=== PATIENT | female | born 1970 | race Caucasian/White ===

== ENCOUNTER 2019-04-05 09:41 | Outpatient (CLI) | payer OTHER ==
[2019-04-05 10:14] LABS: BASOPHILS % (AUTO) 0.5 %; EOSINOPHILS # (AUTO) 0.3 10^3/uL (0.0-0.7); EOSINOPHILS % (AUTO) 5.3 %; HGB - HEMOGLOBIN 14.4 g/dL (12.0-16.0); LYMPHOCYTES # (AUTO) 1.9 10^3/uL (1.5-3.5); LYMPHOCYTES % (AUTO) 33.8 %; MEAN CORPUSCULAR HEMOGLOBIN 28.5 pg (27.0-31.0); MEAN CORPUSCULAR HGB CONC 31.9 g/dL (32.0-36.0); MEAN CORPUSCULAR VOLUME 89.3 fL (81.0-99.0); MEAN PLATELET VOLUME 8.9 fL (7.9-10.8); MONOCYTES # (AUTO) 0.3 10^3/uL (0.0-1.0); MONOCYTES % (AUTO) 5.9 %; NEUTROPHILS % (AUTO) 54.3 %; PLT - PLATELET COUNT 329 10^3/uL (130-450); RED BLOOD COUNT 5.06 10^6/uL (4.20-5.40); RED CELL DISTRIBUTION WIDTH 13.3 % (12.0-15.0); WHITE BLOOD COUNT 5.5 x10^3/uL (4.8-10.8)
[2019-04-05 10:28] LABS: ALBUMIN/GLOBULIN RATIO 1.3 (1.0-2.2); ALKALINE PHOSPHATASE 58 IU/L (42-121); ALT ALANINE AMINOTRANSFERASE 18 IU/L (10-60); AST ASPARTATE AMINOTRANSFERASE 18 IU/L (10-42); BILIRUBIN,TOTAL < 0.2 mg/dL (0.2-1.0); BUN - BLOOD UREA NITROGEN 15 mg/dL (6-20); CALCIUM 9.4 mg/dL (8.5-10.3); CARBON DIOXIDE - CO2 29 mmol/L (21-32); CHLORIDE 103 mmol/L (101-111); CHOL/HDL RATIO 3.6 (<4.4); CHOLESTEROL 272 mg/dL; CREATININE 0.9 mg/dL (0.4-1.0); GFR - MDRD 66 (>89); GLUCOSE 104 mg/dL (70-100); HDL CHOLESTEROL 75 mg/dL; LDL CHOLESTEROL,CALCULATED 172 mg/dL; LDL/HDL RATIO 2.3 (<4.4); SODIUM 140 mmol/L (135-145); TOTAL PROTEIN 7.2 g/dL (6.7-8.2); URIC ACID 5.9 mg/dL (2.6-7.2); VLDL CHOLESTEROL 25 mg/dL
[2019-04-05 10:32] LABS: CRP - C-REACTIVE PROTEIN < 1.0 mg/dL (0-1.0)
== END 2019-04-05 09:42 | disposition home or self-care (01) ==
LOC: LAB 09:41
PROVIDERS: ATTEND Nurse Practitioner
DX: Z00.00 Encounter for general adult medical examination without abnormal findings (principal); R20.9 Unspecified disturbances of skin sensation; I10 Essential (primary) hypertension; M25.50 Pain in unspecified joint; Z79.899 Other long term (current) drug therapy
CPT/HCPCS: 36415; 80053; 80061; 83721; 84443; 84550; 85025; 85651; 86140

== ENCOUNTER 2019-04-12 09:18 | Outpatient (CLI) | payer OTHER ==
[2019-04-14 08:15] LABS: RHEUMATOID FACTOR NEGATIVE (Negative)
[2019-04-16 20:17] LABS: ANA SCREEN NEGATIVE (NEGATIVE)
== END 2019-04-12 09:19 | disposition home or self-care (01) ==
LOC: LAB 09:18
PROVIDERS: ATTEND Nurse Practitioner
DX: M25.50 Pain in unspecified joint (principal)
CPT/HCPCS: 36415; 81599; 82306; 86038; 86200; 86430

== ENCOUNTER 2019-07-04 06:03 | Day surgery (SDC) | payer OTHER ==
[2019-07-04] MEDS ORDERED: fentaNYL 2,500 MCG/50 ML VIAL IV ONE (06:04)
[2019-07-04] MEDS ORDERED: MIDAZOLAM 2 MG/2 ML VIAL IVP ONE (06:04)
[2019-07-04] MEDS ORDERED: LACTATED RINGERS 1,000 ML IV ONE (06:29)
[2019-07-04] MEDS ORDERED: ONDANSETRON 4 MG/2 ML VIAL ONE (07:06)
[2019-07-04] MEDS ORDERED: GLUCAGON 1 MG/ML VIAL ONE (07:20)
[2019-07-04 08:20] VITALS: BP 103/71
== END 2019-07-04 06:04 | disposition home or self-care (01) ==
LOC: SDS 06:03
PROVIDERS: ATTEND Surgery
PROC: 0DJD8ZZ Inspection of Lower Intestinal Tract, Via Natural or Artificial Opening Endoscopic (ICD-10-PCS; principal; 2019-07-04 07:30)
DX: Z12.11 Encounter for screening for malignant neoplasm of colon (principal); Z53.8 Procedure and treatment not carried out for other reasons
CPT/HCPCS: 45378; J3010; J7120

== ENCOUNTER 2019-08-06 09:29 | Day surgery (SDC) | payer OTHER ==
[2019-08-06] MEDS ORDERED: LACTATED RINGERS 1,000 ML IV ONE (09:34)
[2019-08-06] MEDS ORDERED: MIDAZOLAM 2 MG/2 ML VIAL IVP ONE (10:42)
[2019-08-06] MEDS ORDERED: fentaNYL 250 MCG/5 ML VIAL IVP ONE (10:42)
[2019-08-06 11:19] VITALS: BP 105/71
== END 2019-08-06 09:30 | disposition home or self-care (01) ==
LOC: SDS 09:29
PROVIDERS: ATTEND Surgery
PROC: 0DJD8ZZ Inspection of Lower Intestinal Tract, Via Natural or Artificial Opening Endoscopic (ICD-10-PCS; principal; 2019-08-06 11:00)
DX: Z12.11 Encounter for screening for malignant neoplasm of colon (principal); I10 Essential (primary) hypertension; Z79.899 Other long term (current) drug therapy
CPT/HCPCS: 45378; J7120

== ENCOUNTER 2020-02-13 07:32 | Outpatient (CLI) | payer OTHER ==
[2020-02-13 11:37] LABS: HGB - HEMOGLOBIN 13.6 g/dL (12.0-16.0); MEAN CORPUSCULAR HEMOGLOBIN 28.2 pg (27.0-31.0); MEAN CORPUSCULAR HGB CONC 31.3 g/dL (32.0-36.0); MEAN CORPUSCULAR VOLUME 89.9 fL (81.0-99.0); RED BLOOD COUNT 4.83 10^6/uL (4.20-5.40); RED CELL DISTRIBUTION WIDTH 13.2 % (12.0-15.0); WHITE BLOOD COUNT 5.5 x10^3/uL (4.8-10.8)
[2020-02-13 12:19] LABS: ALBUMIN 3.8 g/dL (3.2-5.5); ALBUMIN/GLOBULIN RATIO 1.3 (1.0-2.2); ALKALINE PHOSPHATASE 59 IU/L (42-121); ALT ALANINE AMINOTRANSFERASE 21 IU/L (10-60); AST ASPARTATE AMINOTRANSFERASE 22 IU/L (10-42); BILIRUBIN,TOTAL 0.8 mg/dL (0.2-1.0); BUN - BLOOD UREA NITROGEN 21 mg/dL (6-20); CARBON DIOXIDE - CO2 27 mmol/L (21-32); CHLORIDE 103 mmol/L (101-111); CHOL/HDL RATIO 3.3 (<4.4); CHOLESTEROL 256 mg/dL; GLUCOSE 106 mg/dL (70-100); HDL CHOLESTEROL 78 mg/dL; LDL CHOLESTEROL,CALCULATED 147 mg/dL; LDL/HDL RATIO 1.9 (<4.4); SODIUM 137 mmol/L (135-145); TOTAL PROTEIN 6.7 g/dL (6.7-8.2); URIC ACID 5.9 mg/dL (2.6-7.2); VLDL CHOLESTEROL 31 mg/dL
[2020-02-13 12:32] LABS: CRP - C-REACTIVE PROTEIN < 1.0 mg/dL (0-1.0)
[2020-02-13 12:48] LABS: RHEUMATOID FACTOR NEGATIVE (Negative)
--- NOTE | 2020-02-13 15:14 | XRAY Report ---
Reason: POLYARTHRALGIA Procedure Date: 02/13/2020 Accession Number: [id number] / [id number] Procedure: WCP - Hand 2 View BILAT CPT Code: Final Report FULL RESULT: PROCEDURE: Hand 2 View BILAT INDICATIONS: POLYARTHRALGIA TECHNIQUE: 2 views of the hand(s) acquired. COMPARISON: None FINDINGS: Bones: No fractures or dislocations. No suspicious bony lesions. No appreciable IP or CMC degenerative narrowing is identified. No erosions or periarticular osteophytes. Soft tissues: No suspicious soft tissue calcifications. IMPRESSION: No erosions or definitive areas of arthritic narrowing. Reviewed by: Dulce Maria Fernandez MD on 02/13/2020 3:13 PM PDT Approved by: Dulce Maria Fernandez MD on 02/13/2020 3:13 PM PDT Station ID: [id number]
[2020-02-16 12:04] LABS: ANA SCREEN NEGATIVE (NEGATIVE)
== END 2020-02-13 23:59 | disposition home or self-care (01) ==
LOC: DI.WCP 07:32
PROVIDERS: ATTEND Family Medicine
DX: M25.542 Pain in joints of left hand (principal); M25.541 Pain in joints of right hand; E78.5 Hyperlipidemia, unspecified; I10 Essential (primary) hypertension; M25.50 Pain in unspecified joint
CPT/HCPCS: 36415; 80053; 80061; 83721; 84550; 85027; 85651; 86038; 86140; 86200; 86430

== ENCOUNTER 2020-05-17 07:00 | Outpatient (CLI) | payer OTHER | END 2020-05-17 23:59 | disposition home or self-care (01) | LOC: LAB.R 07:00 | PROVIDERS: ATTEND Internal Medicine | DX: R68.83 Chills (without fever) (principal); R11.2 Nausea with vomiting, unspecified; G44.89 Other headache syndrome; Z20.828 Contact with and (suspected) exposure to other viral communicable diseases ==

== ENCOUNTER 2020-05-17 08:00 | Outpatient (CLI) | payer OTHER ==
[2020-05-17 18:09] LABS: BASOPHILS % (AUTO) 0.7 %; EOSINOPHILS # (AUTO) 0.3 10^3/uL (0.0-0.7); EOSINOPHILS % (AUTO) 4.7 %; HGB - HEMOGLOBIN 14.2 g/dL (12.0-16.0); LYMPHOCYTES % (AUTO) 33.3 %; MEAN CORPUSCULAR HEMOGLOBIN 28.7 pg (27.0-31.0); MEAN CORPUSCULAR HGB CONC 32.1 g/dL (32.0-36.0); MEAN CORPUSCULAR VOLUME 89.7 fL (81.0-99.0); MEAN PLATELET VOLUME 9.2 fL (7.9-10.8); MONOCYTES # (AUTO) 0.4 10^3/uL (0.0-1.0); MONOCYTES % (AUTO) 6.3 %; NEUTROPHILS # (AUTO) 3.3 10^3/uL (1.5-6.6); NEUTROPHILS % (AUTO) 54.7 %; PLT - PLATELET COUNT 358 10^3/uL (130-450); RED BLOOD COUNT 4.94 10^6/uL (4.20-5.40)
[2020-05-17 18:31] LABS: ALBUMIN 3.8 g/dL (3.2-5.5); ALBUMIN/GLOBULIN RATIO 1.2 (1.0-2.2); BILIRUBIN,TOTAL 0.5 mg/dL (0.2-1.0); CALCIUM 9.2 mg/dL (8.5-10.3); CREATININE 0.7 mg/dL (0.4-1.0)
[2020-05-17 18:52] LABS: BILIRUBIN,URINE NEGATIVE (NEGATIVE); GLUCOSE, URINE (UA) NEGATIVE (NEGATIVE); KETONES,URINE (UA) NEGATIVE (NEGATIVE); LEUKOCYTE ESTERASE, URINE NEGATIVE (NEGATIVE); NITRITE,URINE NEGATIVE (NEGATIVE); OCCULT BLOOD,URINE NEGATIVE (NEGATIVE); PH,URINE 5.5 PH (5.0-7.5); PROTEIN,URINE NEGATIVE (NEGATIVE); UROBILINOGEN,URINE 0.2 (NORMAL) E.U./dL (NORMAL)
[2020-05-17 19:09] LABS: BACTERIA,URINE None Seen /HPF (None Seen); CLARITY,URINE CLEAR (CLEAR); RBC,URINE None Seen /HPF (0-5); SQUAMOUS EPITHELIAL CELL,UR NONE SEEN (<= Few)
== END 2020-05-17 23:59 | disposition home or self-care (01) ==
LOC: LAB.WCP 08:00
PROVIDERS: ATTEND Internal Medicine
DX: R11.2 Nausea with vomiting, unspecified (principal); R68.83 Chills (without fever); Z20.828 Contact with and (suspected) exposure to other viral communicable diseases
CPT/HCPCS: 36415; 80053; 81001; 83690; 85025; 86769; 87086; 87275; 87276

== ENCOUNTER 2020-08-29 10:39 | Outpatient (CLI) | payer OTHER ==
[2020-08-29 11:21] LABS: HGB - HEMOGLOBIN 14.3 g/dL (12.0-16.0); MEAN CORPUSCULAR HEMOGLOBIN 28.5 pg (27.0-31.0); MEAN CORPUSCULAR HGB CONC 31.8 g/dL (32.0-36.0); MEAN CORPUSCULAR VOLUME 89.8 fL (81.0-99.0); MEAN PLATELET VOLUME 8.6 fL (7.9-10.8); RED BLOOD COUNT 5.01 10^6/uL (4.20-5.40); RED CELL DISTRIBUTION WIDTH 13.1 % (12.0-15.0); WHITE BLOOD COUNT 6.3 x10^3/uL (4.8-10.8)
[2020-08-29 11:52] LABS: RHEUMATOID FACTOR NEGATIVE (Negative)
[2020-08-29 11:56] LABS: % IRON SATURATION 19 % (20-50); CHOL/HDL RATIO 4.1 (<4.4); CHOLESTEROL 294 mg/dL; CRP - C-REACTIVE PROTEIN 1.3 mg/dL (0-1.0); HDL CHOLESTEROL 72 mg/dL; IRON 95 ug/dL (28-170); LDL CHOLESTEROL,CALCULATED 177 mg/dL; LDL/HDL RATIO 2.5 (<4.4); TOTAL IRON BINDING CAPACITY 491 ug/dL (250-450); TRANSFERRIN 351 mg/dL (192-382); VLDL CHOLESTEROL 45 mg/dL
[2020-09-01 11:13] LABS: ANA SCREEN NEGATIVE (NEGATIVE)
[2020-09-01 20:57] LABS: CYCLIC CITRULL PEPTIDE CCP IGG <16 UNITS
== END 2020-08-29 10:40 | disposition home or self-care (01) ==
LOC: LAB 10:39
PROVIDERS: ATTEND Internal Medicine
DX: I10 Essential (primary) hypertension (principal); M25.50 Pain in unspecified joint
CPT/HCPCS: 36415; 80061; 82728; 83540; 83721; 84466; 85027; 85651; 86038; 86140; 86200; 86430; 86812

== ENCOUNTER 2020-09-03 15:08 | Outpatient (CLI) | payer OTHER ==
--- NOTE | 2020-09-03 16:47 | XRAY Report ---
PROCEDURE: Hand 2 View BILAT INDICATIONS: POLYTHRALGIA TECHNIQUE: 2 views of the hand(s) acquired. COMPARISON: X-ray hand 02/13/2020 FINDINGS: Bones: No fractures or dislocations. No suspicious bony lesions. No erosions. No definitive arthri tic narrowing. No appreciable interval change. Soft tissues: No suspicious soft tissue calcifications. IMPRESSION: Stable interval exam demonstrating no appreciable arthritis. Reviewed by: Dulce Maria Fernandez MD on 09/03/2020 4:45 PM PST Approved by: Dulce Maria Fernandez MD on 09/03/2020 4:45 PM [facility] Station ID: [id number]
--- NOTE | 2020-09-03 16:47 | XRAY Report ---
PROCEDURE: Foot 2 View BILAT INDICATIONS: POLYTHRALGIA TECHNIQUE: 3 views of the foot were acquired. COMPARISON: None FINDINGS: Bones: No fractures or dislocations. No suspicious bony lesions. No erosions. Questionable minimal scattered IP narrowing particularly at the DIP joints. Soft tissues: No tibiotalar joint effusion. Achilles tendon appears normal. IMPRESSION: Questionable minimal early arthritic change at the DIP joints. No erosions. Reviewed by: Dulce Maria Fernandez MD on 09/03/2020 4:46 PM [facility] Approved by: Dulce Maria Fernandez MD on 09/03/2020 4:46 PM [facility] Station ID: [id number]
== END 2020-09-03 15:09 | disposition home or self-care (01) ==
LOC: DI 15:08
PROVIDERS: ATTEND Internal Medicine
DX: M25.542 Pain in joints of left hand (principal); M25.541 Pain in joints of right hand; M25.572 Pain in left ankle and joints of left foot; M25.571 Pain in right ankle and joints of right foot; G89.29 Other chronic pain

== ENCOUNTER 2020-09-06 10:15 | Outpatient (CLI) | payer OTHER ==
--- NOTE | 2020-09-06 11:29 | XRAY Report ---
PROCEDURE: Sacrum/Coccyx INDICATIONS: POLYARTHRALGIA TECHNIQUE: 3 views of the sacrum and coccyx acquired. COMPARISON: None. FINDINGS: Bones: No fractures or dislocations. No suspicious bony lesions. Lumbar spondylosis and facet arth ropathy. Sacroiliac joints appear grossly preserved, with no definite erosions or joint space narrowi ng. Soft tissues: Visualized bowel gas pattern is normal. No suspicious soft tissue densities. IMPRESSION: Mild lumbar spondylosis and facet arthropathy. Reviewed by: Daryl Olivera MD on 09/06/2020 11:28 AM PST Approved by: Daryl Olivera MD on 09/06/2020 11:28 AM PST Station ID: [id number]
== END 2020-09-06 10:16 | disposition home or self-care (01) ==
LOC: DI 10:15
PROVIDERS: ATTEND Internal Medicine
DX: M54.5 Low back pain (principal); G89.29 Other chronic pain; M47.816 Spondylosis without myelopathy or radiculopathy, lumbar region

== ENCOUNTER 2020-09-22 18:07 | Emergency (ER) | payer OTHER ==
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
[2020-09-22 18:54] LABS: BASOPHILS # (AUTO) 0.1 10^3/uL (0.0-0.1); BASOPHILS % (AUTO) 0.8 %; EOSINOPHILS # (AUTO) 0.3 10^3/uL (0.0-0.7); EOSINOPHILS % (AUTO) 4.4 %; HCT - HEMATOCRIT 39.1 % (37.0-47.0); HGB - HEMOGLOBIN 12.6 g/dL (12.0-16.0); LYMPHOCYTES # (AUTO) 2.6 10^3/uL (1.5-3.5); LYMPHOCYTES % (AUTO) 40.4 %; MEAN CORPUSCULAR HEMOGLOBIN 28.5 pg (27.0-31.0); MEAN CORPUSCULAR HGB CONC 32.2 g/dL (32.0-36.0); MEAN CORPUSCULAR VOLUME 88.5 fL (81.0-99.0); MEAN PLATELET VOLUME 8.3 fL (7.9-10.8); MONOCYTES # (AUTO) 0.5 10^3/uL (0.0-1.0); MONOCYTES % (AUTO) 7.4 %; NEUTROPHILS % (AUTO) 46.8 %; PLT - PLATELET COUNT 365 10^3/uL (130-450); RED BLOOD COUNT 4.42 10^6/uL (4.20-5.40); RED CELL DISTRIBUTION WIDTH 12.7 % (12.0-15.0); WHITE BLOOD COUNT 6.4 x10^3/uL (4.8-10.8)
[2020-09-22] MEDS ORDERED: IOVERSOL 320 100 ML VIAL IVP ONE ×2 (19:00→19:59)
[2020-09-22 19:08] LABS: ALBUMIN 3.7 g/dL (3.2-5.5); ALBUMIN/GLOBULIN RATIO 1.1 (1.0-2.2); BILIRUBIN,TOTAL 0.7 mg/dL (0.2-1.0); CALCIUM 9.3 mg/dL (8.5-10.3); CREATININE 0.8 mg/dL (0.4-1.0); POTASSIUM 3.2 mmol/L (3.5-5.0); TOTAL PROTEIN 7.1 g/dL (6.7-8.2)
[2020-09-22] MEDS ORDERED: POTASSIUM CHLORIDE 20 MEQ TABLET PO STA (19:22)
[2020-09-22] MEDS ORDERED: SODIUM CHLORIDE 0.9% 1,000 ML IV STA (19:22)
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
[2020-09-22 20:30] VITALS: BP 134/83
== END 2020-09-22 21:02 | disposition home or self-care (01) ==
LOC: ED 18:07
DX: S20.211A Contusion of right front wall of thorax, initial encounter (principal); R07.1 Chest pain on breathing; V47.0XXA Car driver injured in collision with fixed or stationary object in nontraffic accident, initial encounter; W22.11XA Striking against or struck by driver side automobile airbag, initial encounter; Y92.410 Unspecified street and highway as the place of occurrence of the external cause; E87.6 Hypokalemia; I10 Essential (primary) hypertension
CPT/HCPCS: 36415; 71275; 80053; 83690; 84484; 85025; 93005; 99283; 99284; A9270; Q9967

== ENCOUNTER 2020-10-08 09:06 | Outpatient (CLI) | payer OTHER ==
[2020-10-08 09:47] VITALS: BP 125/84
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
== END 2020-10-08 09:07 | disposition home or self-care (01) ==
LOC: SC 09:06
PROVIDERS: ATTEND Nurse Practitioner Family
DX: G47.10 Hypersomnia, unspecified (principal); R06.83 Snoring; E66.9 Obesity, unspecified; Z68.31 Body mass index [BMI] 31.0-31.9, adult; R41.89 Other symptoms and signs involving cognitive functions and awareness
CPT/HCPCS: 99203; 99212

== ENCOUNTER 2020-11-12 10:50 | Outpatient (CLI) | payer OTHER | END 2020-11-12 10:51 | disposition home or self-care (01) | LOC: SC 10:50 | PROVIDERS: ATTEND Nurse Practitioner Family | DX: G47.10 Hypersomnia, unspecified (principal); R41.89 Other symptoms and signs involving cognitive functions and awareness; R06.83 Snoring; G47.8 Other sleep disorders; E66.9 Obesity, unspecified; Z68.31 Body mass index [BMI] 31.0-31.9, adult | CPT/HCPCS: 95806 ==

== ENCOUNTER 2020-11-23 10:26 | Outpatient (CLI) | payer OTHER ==
--- NOTE | 2020-11-23 10:44 | SLEEP CARE CONSULTATION ---
Information from patient questionnaire entered by Robyn Hargrove. I have reviewed and concur with the information entered by Robyn Hargrove. This document represents the service I personally performed and the decisions made by , Sunita Noble ARNP. History of Present Illness Service Date and Time: 11/23/2020 1026 Initial [place] Sleepiness Scale score: 18 (in 2020) Current [place] Sleepiness Scale score: 17 Additional HPI information: SALVADOR SHABAZZ returns for follow up and results of the recently performed home sleep study. The patient was informed of the following findings: Poor quality study due to near complete loss of air flow signal, testing showing no significant sleep disordered breathing with an average AHI of 0.4 and matthew of 90%. Due to poor quality study need to repeat HST or have patient do an in lab PSG for more accurate results. Patient does not drink alcohol. Patient was cautioned about risks of drowsy driving until sleepiness symptoms resolve. Patient denies drowsy driving. Sleep Study - Results Type of Sleep Study: Home sleep study Prior sleep studies: No Polysomnography/Home Sleep Study results: Physician Impression: The quality of the study is poor due to near complete loss of airflow signal. The length of the study is adequate (> 240 minutes). Please also see the tabulated and graphic data. 1. Obstructive Sleep Apnea-Hypopnea (ICD-10 G47.33), none, with an AHI of 0.4/hr and matthew SaO2 of 90%. During the study, the patient had 0 apneas (0 obstructive, 0 central, 0 mixed) and 1 hypopnea. The episode lasted 53.0 seconds. The patient did not sleep supine during this study. Recommendation: h Due to the data loss, this home sleep apnea test (HSAT) cannot be interpreted. Consider repeating the test. An in-laboratory polysomnography should be ordered if the HSAT cannot be performed properly. Allergies and Home Medications Home medication list reviewed: Yes (Meloxicam, Gabapentin) Review of Systems Review of systems same as previous: No (Possible osteoarthritis adn peripheral neuropathy) Physical Exam Heart Rate: 100 O2 Saturation: 95 Height: 5 ft 4 in Weight: 186 lb Body Mass Index: 31.9 BMI Classification: Obese Impression and Plan 1. Suspected Obstructive Sleep Apnea-Hypopnea Syndrome, as suggested by a histo ry of loud and irregular snoring, unrefreshed sleep, cognitive impairment, and excessive daytime sleepiness. We did not get a good HST result with loss of airflow signal and need to repeat her study. I recommend proceeding to polysomnography to confirm the diagnosis and to assess severity. I obtained agreement to proceed and she would like to try an in lab PSG. The pathophysiology of obstructive sleep apnea-hypopnea syndrome was discussed with the patient and health risks of cardiovascular and cerebrovascular disease if not treated. Risks of drowsy driving discussed in detail and patient advised to avoid long distance driving and to stock puller at the first sign of drowsiness. Patient agreed to plan. * Schedule polysomnography * Avoid long distance driving or driving when feeling sleepy. * Avoid alcohol, sedative and muscle relaxant around bedtime. * Attempt to lose weight. * Review instructions provided by trained office staff on how to prepare for the sleep study. * Return for follow-up after sleep study completed. Counseling Topics: Weight loss health impact Visit Type: In Office Time Spent with Patient (minutes): 12 Provider Statement: I spent 100% of the Face to Face Visit with the patient with greater than 50% spent counseling the patient and coordination of care.
== END 2020-11-23 10:27 | disposition home or self-care (01) ==
LOC: SC 10:26
PROVIDERS: ATTEND Nurse Practitioner Family
DX: G47.10 Hypersomnia, unspecified (principal); R06.83 Snoring; G47.8 Other sleep disorders; E66.9 Obesity, unspecified; Z68.31 Body mass index [BMI] 31.0-31.9, adult
CPT/HCPCS: 99212

== ENCOUNTER 2021-01-03 16:46 | Emergency (ER) | payer OTHER ==
--- NOTE | 2021-01-03 17:19 | ED Physician Documentation ---
History of Present Illness - Stated complaint Stated Complaint: CHEST PX - Chief complaint Chief Complaint: Cardiac - Additonal information Additional information: 50-year-old female presents the emergency department for evaluation of left-si ded chest pain that has been intermittent for the last 3 days. No exacerbating or relieving factors. Describes somewhat as sharp but now radiating to her left axilla. No associated shortness of air nausea vomiting abdominal pain. She is not a smoker but does carry history of hypertension. Both her mother and brother are of coronary artery disease. She does take estrogen supplementation. Denies any unilateral leg swelling calf pain tenderness no recent immobilization no personal history of blood clots or cancer. Review of Systems Constitutional: denies: Fever, Chills Eyes: reports: Reviewed and negative Ears: reports: Reviewed and negative Nose: reports: Reviewed and negative Throat: reports: Reviewed and negative Cardiac: reports: Chest pain / pressure. 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 : None HEENT: None Psych: None Musculoskeletal: Osteoarthritis, Other Derm: None - Past Surgical History General: Cholecystectomy, Appendectomy /CANAL EQUIPMENT MECHANIC: Hysterectomy HEENT: Tonsil/Adenoidectomy - Present Medications Home Medications: Ambulatory Orders Medication Instructions Recorded Confirmed DULoxetine [Cymbalta] 40 mg PO DAILY 07/03/19 01/03/21 estradioL [Estradiol] 2 mg PO DAILY 07/03/19 01/03/21 hydroCHLOROthiazide 25 mg PO DAILY 07/03/19 01/03/21 [Hydrochlorothiazide] polyethylene glycoL 3350 [Miralax] 17 gm PO DAILY 07/03/19 01/03/21 Psyllium Husk/Aspartame [Metamucil 1 tsp PO DAILY 07/04/19 01/03/21 Sugar-Free Powder] Cholecalciferol [Vitamin D3] 1,000 unit PO DAILY 01/03/21 01/03/21 Meloxicam [Mobic] 1 tablet PO DAILY 01/03/21 01/03/21 Multivitamin [Theragran] 1 each PO DAILY 01/03/21 01/03/21 - Allergies Allergies/Adverse Reactions: Allergies Allergy/AdvReac Type Severity Reaction Status Date / Time adhesive tape AdvReac Rash Verified 01/03/21 16:55 - Social History Does the pt smoke?: No Smoking Status: Never smoker Does the pt drink ETOH?: Yes Does the pt have substance abuse?: No - Immunizations Immunizations are current?: Yes - POLST Patient has POLST: No PD ED PE EXPANDED - General General: Alert, No acute distress - Cardiac Cardiac: Regular Rate, Radial strong equal, Pedal strong equal, Cap refill < 2 sec. No: Murmur Present - Respiratory Respiratory: Clear to ausultation keith. No: Distress, Labored - Abdomen Abdomen: Normal Bowel sounds. No: Tender to palpation - Back Back: Normal exam - Derm Derm: Normal color, Warm and dry. No: Rash Results - Vitals Vitals: Vital Signs - 24 hr 01/03/21 01/03/21 16:49 17:09 Temperature 36.2 C L Heart Rate 76 77 Respiratory 16 14 Rate Blood Pressure 139/96 H 137/84 H O2 Saturation 98 99 Oxygen O2 Source Room air - EKG (time done) 1651 Rate: Rate (enter#) (74) Rhythm: NSR [place]: Normal Intervals: Normal [place] QRS: Normal Ischemia: Normal ST segments Compare to prior EKG: Unchanged from prior EKG Computer interpretation: Agree with computer - Labs Labs: Laboratory Tests 01/03/21 01/03/21 01/03/21 17:05 17:05 17:05 WBC 7.9 RBC 4.85 Hgb 13.8 Hct 42.9 MCV 88.5 MCH 28.5 MCHC 32.2 RDW 13.0 Plt Count 351 MPV 8.9 Neut # (Auto) 4.1 Lymph # (Auto) 2.9 [place] # (Auto) 0.6 Eos # (Auto) 0.3 Baso # (Auto) 0.1 Absolute Nucleated RBC 0.00 Nucleated RBC % 0.0 D-Dimer Sodium 138 Potassium 3.4 L Chloride 100 L Carbon Dioxide 28 Anion Gap 10.0 BUN 27 H Creatinine 1.0 Estimated GFR (MDRD) 58 L Glucose 92 Calcium 9.9 Total Bilirubin 0.6 AST 22 ALT 24 Alkaline Phosphatase 67 Troponin I High Sens 2.5 Total Protein 7.5 Albumin 4.2 Globulin 3.3 Albumin/Globulin Ratio 1.3 Lipase 25 01/03/21 17:29 WBC RBC Hgb Hct MCV MCH MCHC RDW Plt Count MPV Neut # (Auto) Lymph # (Auto) [place] # (Auto) Eos # (Auto) Baso # (Auto) Absolute Nucleated RBC Nucleated RBC % D-Dimer < 200.0 L Sodium Potassium Chloride Carbon Dioxide Anion Gap BUN Creatinine Estimated GFR (MDRD) Glucose Calcium Total Bilirubin AST ALT Alkaline Phosphatase Troponin I High Sens Total Protein Albumin Globulin Albumin/Globulin Ratio Lipase - Rads (name of study) CXR Radiology: Final report received (No acute cardiopulmonary process) PD MEDICAL DECISION MAKING - ED course Complexity details: reviewed results, re-evaluated patient, d/w patient ED course: 50-year-old female presents emergency department today for evaluation of intermittent chest pain that has waxed and waned for about the last 3 to 4 days. Not exertional in nature and unable to be reproduced. She does carry history of hypertension but is not a smoker. However there is a strong family history of coronary artery disease. She is also on estrogen. Screening EKG is entirely nonischemic. High-sensitivity troponin is negative. Her D-dimer is not elevated. Otherwise by Wells criteria low risk for PE. Chest x-ray without any acute focal abnormalities. I did discuss this ED visit at length with the patient. Her heart score is 1 putting her low risk for 30-day Mace. I have advised close follow-up with her primary care provider. She may benefit from an outpatient stress test and echocardiogram. Emergent return precautions were discussed for concerns of worsening chest pain, shortness of air or syncope. Departure - Departure Disposition: 01 Home, Self Care Clinical Impression: Chest pain Qualifiers: Chest pain type: unspecified Qualified Code(s): R07.9 - Chest pain, unspecified Condition: Stable Record reviewed to determine appropriate education?: Yes Instructions: ED Chest Pain Atypical Unkn Cause Follow-Up: Ezequiel Vasquez MD [Primary Care Provider] - Comments: Radha were seen in the ER today for chest pain. As we discussed your chest x- ray, EKG and screening labs are all without worrisome findings. Is important you continue to take your blood pressure medications as already prescribed. I do recommend that you schedule close follow-up with your primary care provider. Given your age, history of hypertension as well as family history of coronary artery disease you may benefit from outpatient stress test and echocardiogram of your heart. If at any point you have worsening chest pain, shortness of air or any fainting episodes please return to the ER for a second evaluation.
[2021-01-03 17:28] LABS: BASOPHILS # (AUTO) 0.1 10^3/uL (0.0-0.1); BASOPHILS % (AUTO) 0.6 %; EOSINOPHILS # (AUTO) 0.3 10^3/uL (0.0-0.7); EOSINOPHILS % (AUTO) 3.9 %; HCT - HEMATOCRIT 42.9 % (37.0-47.0); HGB - HEMOGLOBIN 13.8 g/dL (12.0-16.0); LYMPHOCYTES # (AUTO) 2.9 10^3/uL (1.5-3.5); LYMPHOCYTES % (AUTO) 36.5 %; MEAN CORPUSCULAR HEMOGLOBIN 28.5 pg (27.0-31.0); MEAN CORPUSCULAR HGB CONC 32.2 g/dL (32.0-36.0); MEAN CORPUSCULAR VOLUME 88.5 fL (81.0-99.0); MEAN PLATELET VOLUME 8.9 fL (7.9-10.8); MONOCYTES # (AUTO) 0.6 10^3/uL (0.0-1.0); MONOCYTES % (AUTO) 7.2 %; NEUTROPHILS # (AUTO) 4.1 10^3/uL (1.5-6.6); NEUTROPHILS % (AUTO) 51.7 %; PLT - PLATELET COUNT 351 10^3/uL (130-450); RED BLOOD COUNT 4.85 10^6/uL (4.20-5.40); WHITE BLOOD COUNT 7.9 x10^3/uL (4.8-10.8)
[2021-01-03 17:48] LABS: ALBUMIN 4.2 g/dL (3.2-5.5); ALBUMIN/GLOBULIN RATIO 1.3 (1.0-2.2); BILIRUBIN,TOTAL 0.6 mg/dL (0.2-1.0); CALCIUM 9.9 mg/dL (8.5-10.3); POTASSIUM 3.4 mmol/L (3.5-5.0); TOTAL PROTEIN 7.5 g/dL (6.7-8.2)
[2021-01-03 18:03] VITALS: BP 141/89
--- NOTE | 2021-01-03 18:19 | XRAY Report ---
PROCEDURE: Chest 1 View X-Ray INDICATIONS: Chest Pain TECHNIQUE: One view of the chest was acquired. COMPARISON: CT angiogram chest 09/22/2020. FINDINGS: Surgical changes and devices: None. Lungs and pleura: No pleural effusions or pneumothorax. Lungs are clear. Mediastinum: Mediastinal contours appear normal. Heart size is normal. Bones and chest wall: No suspicious bony lesions. Overlying soft tissues appear unremarkable. IMPRESSION: 1. No acute cardiopulmonary disease. Reviewed by: John Marte MD on 01/03/2021 6:18 PM PDT Approved by: John Marte MD on 01/03/2021 6:18 PM PDT Station ID: [id number]
== END 2021-01-03 18:17 | disposition home or self-care (01) ==
LOC: ED 16:46
DX: R07.9 Chest pain, unspecified (principal); M79.622 Pain in left upper arm; I10 Essential (primary) hypertension; Z82.49 Family history of ischemic heart disease and other diseases of the circulatory system; Z79.890 Hormone replacement therapy
CPT/HCPCS: 36415; 80053; 83690; 84484; 85025; 85379; 93005; 99284

== ENCOUNTER 2021-05-03 11:08 | Outpatient (CLI) | payer BC ==
--- NOTE | 2021-05-04 10:11 | Mammography Report ---
BILATERAL DIGITAL SCREENING MAMMOGRAM 3D/2D: 05/03/2021 CLINICAL: Routine screening. Baseline exam. No prior exams were available for comparison. There are scattered fibroglandular elements in both br easts. No significant masses, calcifications, or other findings are seen in either breast. IMPRESSION: NEGATIVE There is no mammographic evidence of malignancy. A 1 year screening mammogram is recommended. This exam was interpreted at Station ID: [id number]. NOTE: For mammograms, a report in lay terms will be sent to the patient. Approximately 15% of breast malignancies will not be visualized mammographically. In the management of a palpable breast mass, a negative mammogram must not discourage biopsy of a clinically suspicious lesion. Electronically Signed By: Seferino Stein acr/penrad:05/03/2021 12:13:07 ACR BI-RADS Category 1: Negative 3341F PARENCHYMAL PATTERN: (A) - The breast(s) demonstrate(s) scattered fibroglandular densities. BI-RADS CATEGORY: (1) - 1 RECOMMENDATION: (ANNUAL) - Recommend routine annual screening mammography. 20220504 1 year screening LATERALITY: (B)
== END 2021-05-03 11:09 | disposition home or self-care (01) ==
LOC: DI 11:08
DX: Z12.31 Encounter for screening mammogram for malignant neoplasm of breast (principal)

== ENCOUNTER 2021-07-25 08:00 | Outpatient (CLI) | payer BC ==
--- NOTE | 2021-07-26 10:55 | XRAY Report ---
PROCEDURE: Chest 2 View INDICATIONS: COUGH TECHNIQUE: January 03, 2021 COMPARISON: None. FINDINGS: SUPPORT DEVICES: None. LUNGS/PLEURA: No focal consolidation, pleural effusion or space-occupying pneumothorax. MEDIASTINUM: The cardiomediastinal silhouette is within normal limits. BONES/SOFT TISSUES: No acute abnormality. IMPRESSION: 1.No acute cardiopulmonary abnormality. Reviewed by: Elia Chavez MD on 07/25/2021 12:32 PM [facility] Approved by: Elia Chavez MD on 07/25/2021 12:32 PM [facility] Station ID: [id number]
== END 2021-07-25 23:59 | disposition home or self-care (01) ==
LOC: DI.S 08:00
PROVIDERS: ATTEND Physician Assistant Medical
DX: R05.9 Cough, unspecified (principal); Z20.822 Contact with and (suspected) exposure to COVID-19

== ENCOUNTER 2022-04-26 15:13 | Outpatient (CLI) | payer BC ==
[2022-04-26 16:20] VITALS: BP 128/82
--- NOTE | 2022-04-26 16:20 | SLEEP CARE CONSULTATION ---
Information from patient questionnaire entered by Merly Davey MA. I have reviewed and concur with the information entered by Merly Davey MA. This document represents the service I personally performed and the decisions made by , Sunita Noble ARNP. History of Present Illness Service Date and Time: 04/26/2022 1513 Prior sleep studies: No Type of Sleep Study: Home sleep study HPI additional information: I had the pleasure of seeing SALVADOR SHABAZZ today regarding the possibility of her having a sleep disorder. Her current complaints are snoring, excessive daytime sleepiness, fatigue, frequent night awakenings and unrefreshed sleep. She had a HST that was not diagnostic and we ordered another study but for various reasons was not able to have it done. She is back to pursue a sleep study. The patient tells me that she normally goes to bed around 10 pm, and it takes her approximately 2-3 minutes to fall asleep. She has been told that she snores loudly and irregularly at night. She has not been observed to stop breathing in her sleep. Her bed partner can still sleep in the same bed. She can recall waking up on the average of 2-3 times during the night and she is able to go right back to sleep. Most of the time she wakes up because of pain, bathroom and unknown reasons. She has occasionally awakened for her own snoring. There is not a lot of tossing and turning in her sleep. Generally there is no recollection of dreams. She usually wakes up at 0545 and does not feel refreshed. She usually does have a morning headache that last all day if very tired and other times improve with Tylenol. 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 She tries to remember her mouthguard at night. During the day she complains of feeling sleepy and fatigued. She has never fallen asleep while driving nor has any accident due to sleepiness. She usually naps about 2-3 days a week for about 2-3 hours during the day. If she naps, upon falling asleep during the day she admits to having vivid dreams but she does not remember them. She denies having impaired concentration during the day. There is somniloquy (sleep talking) but no somnambulism (sleep walking). She has never experienced sleep paralysis or cataplexy. She sometimes has restless legs at night. Sleep Study - Results Type of Sleep Study: Home sleep study Prior sleep studies: No Subjective Initial [place] Sleepiness Scale score: 18 (in 2020) Current [place] Sleepiness Scale score: 13 Allergies and Home Medications Drug allergies reviewed: Yes (NKDA) Home medication list reviewed: Yes Allergy and home medication list: Allergies adhesive tape Adverse Reaction (Verified 01/03/21 16:55) Rash New Medications: Losartan Tylenol Arthritis stopped: Meloxicam, HCTZ Review of Systems Review of systems same as previous: No (Stage 3a Kidney disease) Physical Exam Vital signs obtained and entered by: RAMOS ANDREW Blood Pressure: 128/82 Cuff size: long Heart Rate: 92 O2 Saturation: 96 Height: 5 ft 2.5 in Weight: 194 lb 4 oz Body Mass Index: 34.9 BMI Classification: Obese Impression and Plan 1. Suspected Obstructive Sleep Apnea-Hypopnea Syndrome, as suggested by a history of loud and irregular snoring, morning headache, unrefreshed sleep, and excessive daytime sleepiness. I recommend proceeding to polysomnography to confirm the diagnosis and to assess severity. If the patient has significant sleep disordered breathing, a manual CPAP titration study will also be performed to find the optimal treatment pressure. I informed the patient of what the sleep studies involve and after some discussion, obtained agreement to proceed. The pathophysiology of obstructive sleep apnea-hypopnea syndrome was discussed with the patient and health risks of cardiovascular and cerebrovascular disease if not treated. Risks of drowsy driving discussed in detail and patient advised to avoid long distance driving and to slab puller at the first sign of drowsiness. Patient agreed to plan. * Schedule polysomnography * Avoid long distance driving or driving when feeling sleepy. * Avoid alcohol, sedative and muscle relaxant around bedtime. * Attempt to lose weight. * Review instructions provided by trained office staff on how to prepare for the sleep study. * Return for follow-up after sleep study completed. Counseling Topics: Weight loss health impact Visit Type: In Office Time Spent with Patient (minutes): 20 Provider Statement: I spent 100% of the Face to Face Visit with the patient with greater than 50% spent counseling the patient and coordination of care.
== END 2022-04-26 15:14 | disposition home or self-care (01) ==
LOC: SC 15:13
PROVIDERS: ATTEND Nurse Practitioner Family
DX: G47.10 Hypersomnia, unspecified (principal); R53.83 Other fatigue; R06.83 Snoring; G47.8 Other sleep disorders; I10 Essential (primary) hypertension; E66.9 Obesity, unspecified; Z68.34 Body mass index [BMI] 34.0-34.9, adult
CPT/HCPCS: 99212; 99213

== ENCOUNTER 2022-04-27 06:27 | Outpatient (CLI) | payer BC ==
[2022-04-27 06:53] LABS: CALCIUM 9.4 mg/dL (8.5-10.3); CREATININE 0.9 mg/dL (0.4-1.0); POTASSIUM 4.1 mmol/L (3.5-5.0)
[2022-04-27 06:59] LABS: CREATININE,URINE 214.2 mg/dL; MICROALBUM/CREATININE RATIO,UR 3.7 ug/mg (<30.0); MICROALBUMIN,URINE 0.8 mg/dL (0-300.0)
== END 2022-04-27 06:28 | disposition home or self-care (01) ==
LOC: LAB 06:27
PROVIDERS: ATTEND Physician Assistant
DX: N18.31 Chronic kidney disease, stage 3a (principal)
CPT/HCPCS: 36415; 80048; 82043; 82570

== ENCOUNTER 2022-05-25 02:50 | Emergency (ER) | payer BC ==
[2022-05-25 03:36] LABS: BASOPHILS # (AUTO) 0.1 10^3/uL (0.0-0.1); BASOPHILS % (AUTO) 0.8 %; EOSINOPHILS # (AUTO) 0.4 10^3/uL (0.0-0.7); EOSINOPHILS % (AUTO) 7.1 %; HCT - HEMATOCRIT 44.3 % (37.0-47.0); HGB - HEMOGLOBIN 13.8 g/dL (12.0-16.0); LYMPHOCYTES % (AUTO) 50.3 %; MEAN CORPUSCULAR HEMOGLOBIN 27.7 pg (27.0-31.0); MEAN CORPUSCULAR HGB CONC 31.2 g/dL (32.0-36.0); MEAN PLATELET VOLUME 8.3 fL (7.9-10.8); MONOCYTES # (AUTO) 0.5 10^3/uL (0.0-1.0); MONOCYTES % (AUTO) 8.1 %; NEUTROPHILS % (AUTO) 33.5 %; PLT - PLATELET COUNT 353 10^3/uL (130-450); RED BLOOD COUNT 4.98 10^6/uL (4.20-5.40); WHITE BLOOD COUNT 5.9 x10^3/uL (4.8-10.8)
--- NOTE | 2022-05-25 03:37 | ED Physician Documentation ---
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 aching, constant, sudden onset. patient has had high blood pressure readings on and off the past couple weeks and multiple changes to her BP meds. endorses intermittent headaches and nausea yesterday. denies lightheadedness, fever, confusion, chest pain, soa. 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 HEENT: Tonsil/Adenoidectomy - Present Medications Home Medications: Ambulatory Orders Medication Instructions Recorded Confirmed DULoxetine [Cymbalta] 60 mg PO DAILY 07/03/19 05/25/22 estradioL [Estradiol] 4 mg PO DAILY 07/03/19 05/25/22 Cholecalciferol [Vitamin D3] 1,000 unit PO DAILY 01/03/21 05/25/22 Multivitamin [Theragran] 1 each PO DAILY 01/03/21 05/25/22 Losartan/Hydrochlorothiazide 1 each PO DAILY 05/25/22 05/25/22 [Hyzaar 50-12.5 Tablet] - Allergies Allergies/Adverse Reactions: Allergies Allergy/AdvReac Type Severity Reaction Status Date / Time adhesive tape AdvReac Rash Verified 05/25/22 03:06 - Social History Does the pt smoke?: No Smoking Status: Never smoker Does the pt drink ETOH?: Yes Does the pt have substance abuse?: No - Immunizations Immunizations are current?: Yes - POLST Patient has POLST: No PD ED PE NORMAL - Vitals Vital signs reviewed: Yes - General General: Alert 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, No acute distress, Well developed/nourished - HEENT HEENT: Atraumatic, PERRL, EOMI, Moist mucous membranes - Neck Neck: Supple, no meningeal sign - Cardiac Cardiac: RRR - Respiratory Respiratory: No respiratory distress, Clear bilaterally - Abdomen Abdomen: Non tender, Non distended - Female Female : Deferred - Rectal Rectal: Deferred - Derm Derm: Normal color, Warm and dry - Extremities Extremities: No deformity - Neuro Neuro: Alert 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, No motor deficit, No sensory deficit - Psych Psych: Normal mood, Normal affect Results - Vitals Vitals: Vital Signs - 24 hr 05/25/22 05/25/22 05/25/22 03:03 03:10 04:12 Temperature 36.6 C Heart Rate 75 72 83 Respiratory 18 15 18 Rate Blood Pressure 166/113 H 152/94 H 126/92 H O2 Saturation 100 100 98 Oxygen O2 Source Room air - EKG (time done) 0325 Rate: Rate (enter#) (75) Rhythm: NSR [place]: Normal Intervals: Normal [place] QRS: Normal Ischemia: Normal ST segments - Labs Labs: Laboratory Tests 05/25/22 05/25/22 05/25/22 03:30 03:30 03:30 WBC 5.9 RBC 4.98 Hgb 13.8 Hct 44.3 MCV 89.0 MCH 27.7 MCHC 31.2 L RDW 14.0 Plt Count 353 MPV 8.3 Neut # (Auto) 2.0 Lymph # (Auto) 3.0 [place] # (Auto) 0.5 Eos # (Auto) 0.4 Baso # (Auto) 0.1 Absolute Nucleated RBC 0.00 Nucleated RBC % 0.0 Sodium 137 Potassium 4.0 Chloride 101 Carbon Dioxide 27 Anion Gap 9.0 BUN 17 Creatinine 0.9 Estimated GFR (MDRD) 65 L Glucose 102 H Calcium 9.1 Total Bilirubin 0.6 AST 23 ALT 26 Alkaline Phosphatase 70 Troponin I High Sens 3.9 Total Protein 7.2 Albumin 4.1 Globulin 3.1 Albumin/Globulin Ratio 1.3 Lipase 75 H PD MEDICAL DECISION MAKING - ED course ED course: 51yF p/w nausea, headaches, and R arm/shoulder pain as well as high BP readings in the 140s systolic and HR in the 110s while at work. Suspect recent BP medication changes may be mediating some of her symptoms. (Patient stopped HCTZ recently, started losartan, then added HCTZ back at a lower dose.) Will obtain labwork, EKG, CXR, reevaluate. patient declining analgesia. Departure - Departure Disposition: 01 Home, Self Care Clinical Impression: Nausea, Hypertension, Headache, Shoulder pain, right Instructions: Hypertension Control Comments: You were seen in the emergency department for evaluation of nausea, headache, right arm and shoulder pain, and high blood pressure. Your lab work here in the emergency department showed no emergent findings. Your chest x-ray was clear and your EKG was normal. Please follow-up with your primary care provider and return to the ED if you have new or worsening symptoms or other concerns.
[2022-05-25 03:52] LABS: ALBUMIN 4.1 g/dL (3.2-5.5); ALBUMIN/GLOBULIN RATIO 1.3 (1.0-2.2); BILIRUBIN,TOTAL 0.6 mg/dL (0.2-1.0); CALCIUM 9.1 mg/dL (8.5-10.3); CREATININE 0.9 mg/dL (0.4-1.0); TOTAL PROTEIN 7.2 g/dL (6.7-8.2)
[2022-05-25 04:12] VITALS: BP 126/92
--- NOTE | 2022-05-25 07:50 | XRAY Report ---
PROCEDURE: Chest 1 View X-Ray INDICATIONS: nausea, headache, high blood pressure TECHNIQUE: One view of the chest was acquired. COMPARISON: Chest x-ray 2 views, 07/25/2009. Chest x-ray one view, 08/05/2020. FINDINGS: Surgical changes and devices: None. Lungs and pleura: No pleural effusions or pneumothorax. Lungs are clear. Mediastinum: Mediastinal contours appear normal. Heart size is normal. Suspect a moderate-sized hia emmanuel hernia. Bones and chest wall: No suspicious bony lesions. Overlying soft tissues appear unremarkable. IMPRESSION: No acute cardiopulmonary disease. No significant discrepancy with the preliminary interpretation. Reviewed by: Donna Cruz MD on 05/25/2022 7:49 AM PDT Approved by: Donna Cruz MD on 05/25/2022 7:49 AM PDT Station ID: [id number]
== END 2022-05-25 04:33 | disposition home or self-care (01) ==
LOC: ED 02:50
DX: R11.0 Nausea (principal); R51.9 Headache, unspecified; M25.511 Pain in right shoulder; M79.601 Pain in right arm; I10 Essential (primary) hypertension; Z82.49 Family history of ischemic heart disease and other diseases of the circulatory system
CPT/HCPCS: 36415; 80053; 83690; 84484; 85025; 93005; 99284

== ENCOUNTER 2022-05-29 08:41 | Outpatient (CLI) | payer BC ==
--- NOTE | 2022-05-30 09:13 | Mammography Report ---
BILATERAL DIGITAL SCREENING MAMMOGRAM 3D/2D WITH EXAGGERATED CC: 05/29/2022 CLINICAL: Routine screening. Comparison is made to exam dated: 05/03/2021 mammogram - [facility]. Both breasts are heterogeneously dense, which may obscure small masses (category c / 51-75% glandular tissue). No significant masses, calcifications, or other findings are seen in either breast. There has been no significant interval change. IMPRESSION: NEGATIVE There is no mammographic evidence of malignancy. A 1 year screening mammogram is recommended. Based on the Tyrer Cuzick model (a risk assessment model) the patients lifetime risk is 6.1% and her 10 year risk is 1.8%. According to the ACR, ACS, and NCCN guidelines, an annual breast MRI exam davonte g with mammogram is recommended if the patients lifetime risk is 20% or greater. This exam was interpreted at Station ID: [id number]. NOTE: For mammograms, a report in lay terms will be sent to the patient. Approximately 15% of breast malignancies will not be visualized mammographically. In the management of a palpable breast mass, a negative mammogram must not discourage biopsy of a clinically suspicious lesion. Electronically Signed By: Pamela white/hermila:05/29/2022 20:05:58 ACR BI-RADS Category 1: Negative 3341F PARENCHYMAL PATTERN: (D) - The breast(s) demonstrate(s) heterogeneously dense fibroglandular [place]. BI-RADS CATEGORY: (1) - 1 RECOMMENDATION: (ANNUAL) - Recommend routine annual screening mammography. [id number] 1 year screening LATERALITY: (B)
== END 2022-05-29 08:42 | disposition home or self-care (01) ==
LOC: DI 08:41
PROVIDERS: ATTEND Internal Medicine
DX: Z12.31 Encounter for screening mammogram for malignant neoplasm of breast (principal)

== ENCOUNTER 2022-05-30 13:18 | Emergency (ER) | payer BC ==
--- NOTE | 2022-05-30 13:28 | ED Physician Documentation ---
History of Present Illness - Stated complaint Stated Complaint: LT ARM/SHOULDER PX - Additonal information Additional information: 52-year-old female presents the emergency department for evaluation of left posterior back pain with radiation down the arm. Also reporting chest pain. She had a similar episode on 24 April when she was seen in the emergency department with a negative work-up. 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 She does have a history of hypertension for which she is on losartan and hydrochlorothiazide. She is a non-smoker and rare alcohol user. She is denying any dyspnea. Pain is not exertional. She felt that her left arm was weak due to the increased pain. She had no point however had slurred speech facial droop. Review of Systems Constitutional: reports: Reviewed and negative Eyes: reports: Reviewed and negative Ears: reports: Reviewed and negative Throat: reports: Reviewed and negative Cardiac: reports: Chest pain / pressure. 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 : None HEENT: None Psych: None Musculoskeletal: Osteoarthritis, Other Derm: None - Past Surgical History General: Cholecystectomy, Appendectomy /[employer] SOCIAL 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: Hysterectomy HEENT: Tonsil/Adenoidectomy - Present Medications Home Medications: Ambulatory Orders Medication Instructions Recorded Confirmed DULoxetine [Cymbalta] 60 mg PO DAILY 07/03/19 05/25/22 estradioL [Estradiol] 4 mg PO DAILY 07/03/19 05/25/22 Cholecalciferol [Vitamin D3] 1,000 unit PO DAILY 01/03/21 05/25/22 Multivitamin [Theragran] 1 each PO DAILY 01/03/21 05/25/22 Losartan/Hydrochlorothiazide 1 each PO DAILY 05/25/22 05/25/22 [Hyzaar 50-12.5 Tablet] - Allergies Allergies/Adverse Reactions: Allergies Allergy/AdvReac Type Severity Reaction Status Date / Time adhesive tape AdvReac Rash Verified 05/25/22 03:06 - Social History Does the pt smoke?: No Smoking Status: Never smoker Does the pt drink ETOH?: Yes Does the pt have substance abuse?: No - Immunizations Immunizations are current?: Yes - POLST Patient has POLST: No PD ED PE NORMAL - General General: Alert 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, No acute distress, Well developed/nourished - HEENT HEENT: Atraumatic, Moist mucous membranes - Neck Neck: Supple, no meningeal sign, No adenopathy - Cardiac Cardiac: RRR, No murmur - Respiratory Respiratory: No respiratory distress, Clear bilaterally - Abdomen Abdomen: Normal bowel sounds, Soft - Back Back: No CVA TTP - Derm Derm: Normal color, Warm and dry, No rash - Extremities Extremities: No deformity, No tenderness to palpate, Normal ROM s pain - Neuro 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: Alert 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, 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 Eye Opening: Spontaneous Motor: Obeys Commands Verbal: Oriented GCS Score: 15 Results - Vitals Vitals: Vital Signs - 24 hr 05/30/22 05/30/22 13:25 13:59 Temperature 37.0 C Heart Rate 78 80 Respiratory 14 11 L Rate Blood Pressure 139/82 H 139/107 H O2 Saturation 97 96 Oxygen O2 Source Room air - EKG (time done) 1318 Rate: Rate (enter#) (77) Rhythm: NSR [place]: Normal Intervals: Normal [place] QRS: Normal Ischemia: Normal ST segments Compare to prior EKG: Old EKG unavailable Computer interpretation: Agree with computer - Labs Labs: Laboratory Tests 05/30/22 05/30/22 05/30/22 13:23 13:23 13:23 WBC 8.2 RBC 4.59 Hgb 12.8 Hct 40.2 MCV 87.6 MCH 27.9 MCHC 31.8 L RDW 13.8 Plt Count 346 MPV 8.5 Neut # (Auto) 4.4 Lymph # (Auto) 2.9 [place] # (Auto) 0.5 Eos # (Auto) 0.3 Baso # (Auto) 0.1 Absolute Nucleated RBC 0.00 Nucleated RBC % 0.0 Sodium 133 L Potassium 3.3 L Chloride 98 L Carbon Dioxide 27 Anion Gap 8.0 BUN 14 Creatinine 0.9 Estimated GFR (MDRD) 65 L Glucose 90 Calcium 9.3 Total Bilirubin 0.7 AST 23 ALT 23 Alkaline Phosphatase 78 Troponin I High Sens 2.4 Total Protein 7.1 Albumin 3.9 Globulin 3.2 Albumin/Globulin Ratio 1.2 Lipase 90 H 05/30/22 14:17 WBC RBC Hgb Hct MCV MCH MCHC RDW Plt Count MPV Neut # (Auto) Lymph # (Auto) [place] # (Auto) Eos # (Auto) Baso # (Auto) Absolute Nucleated RBC Nucleated RBC % Sodium Potassium Chloride Carbon Dioxide Anion Gap BUN Creatinine Estimated GFR (MDRD) Glucose Calcium Total Bilirubin AST ALT Alkaline Phosphatase Troponin I High Sens < 2.3 L Total Protein Albumin Globulin Albumin/Globulin Ratio Lipase PD MEDICAL DECISION MAKING - ED course Complexity details: reviewed results, re-evaluated patient, considered differential, d/w patient ED course: 52-year-old female presents emergency department for evaluation of acute left- sided chest pain with radiation into the arm. She felt such severe pain in the arm it was weak. She had a similar visit for right-sided chest pain a little more than 1 week ago with a negative work-up. Here in the emergency department Her EKG was normal sinus rhythm. Unchanged from 1 week ago and nonischemic. 2 troponins completed today in the emergency department are negative. Chest x-ray is without acute focal findings. Nothing to suggest pneumonia congestive heart failure or pleural effusion. Otherwise CBC and electrolytes were negative. Clinically I have little suspicion for ACS though given her age history of hypertension and persistent use of estrogen post menopause she may benefit from referral to a wet crown blocking operator for an echo and/or stress test. This was communicated to the patient. Clinically the patient does not appear to have any focal deficits suggestive of stroke therefore CT imaging of the brain was deferred. She is encouraged close follow-up with her primary care provider. Otherwise emergent return precautions discussed Departure - Departure Disposition: Home, Self Care Clinical Impression: Chest pain Qualifiers: Chest pain type: unspecified Qualified Code(s): R07.9 - Chest pain, unspecified Condition: Stable Record reviewed to determine appropriate education?: Yes Instructions: ED Chest Pain Atypical Unkn Cause Comments: Radha curiel are seen today in the emergency department for left-sided chest pain with radiation to your arm. Here in the emergency department your EKG was normal sinus rhythm and nonischemic. We did complete a CBC as well as electrolytes that did not show any worrisome findings. 2 troponins were negative. Your chest x-ray does not show anything to suggest congestive heart failure, pleural effusion or pneumonia. This is your second ED visit now and little more than a week for chest discomfort. I think it is important you discuss with your primary care doctor. Given your age, your history of hypertension as well as your estrogen use it may benefit you to be referred for an echocardiogram and/or a stress test. You can continue to take your usual blood pressure medications as already prescribed. Please return to the emergency department for sudden severe chest pain, any fainting episodes, slurred speech facial droop. Discussed this ED visit with your primary care doctor as soon as possible.
[2022-05-30 13:33] LABS: BASOPHILS # (AUTO) 0.1 10^3/uL (0.0-0.1); BASOPHILS % (AUTO) 0.6 %; EOSINOPHILS # (AUTO) 0.3 10^3/uL (0.0-0.7); HCT - HEMATOCRIT 40.2 % (37.0-47.0); HGB - HEMOGLOBIN 12.8 g/dL (12.0-16.0); LYMPHOCYTES # (AUTO) 2.9 10^3/uL (1.5-3.5); LYMPHOCYTES % (AUTO) 35.1 %; MEAN CORPUSCULAR HEMOGLOBIN 27.9 pg (27.0-31.0); MEAN CORPUSCULAR HGB CONC 31.8 g/dL (32.0-36.0); MEAN CORPUSCULAR VOLUME 87.6 fL (81.0-99.0); MEAN PLATELET VOLUME 8.5 fL (7.9-10.8); MONOCYTES # (AUTO) 0.5 10^3/uL (0.0-1.0); MONOCYTES % (AUTO) 6.4 %; NEUTROPHILS # (AUTO) 4.4 10^3/uL (1.5-6.6); NEUTROPHILS % (AUTO) 53.8 %; PLT - PLATELET COUNT 346 10^3/uL (130-450); RED BLOOD COUNT 4.59 10^6/uL (4.20-5.40); RED CELL DISTRIBUTION WIDTH 13.8 % (12.0-15.0); WHITE BLOOD COUNT 8.2 x10^3/uL (4.8-10.8)
[2022-05-30 13:44] LABS: ALBUMIN 3.9 g/dL (3.2-5.5); ALBUMIN/GLOBULIN RATIO 1.2 (1.0-2.2); BILIRUBIN,TOTAL 0.7 mg/dL (0.2-1.0); CALCIUM 9.3 mg/dL (8.5-10.3); CREATININE 0.9 mg/dL (0.4-1.0); POTASSIUM 3.3 mmol/L (3.5-5.0); TOTAL PROTEIN 7.1 g/dL (6.7-8.2)
[2022-05-30] MEDS ORDERED: NITROGLYCERIN SL 0.4 MG TABLET SL STA ×2 (13:44→14:12)
--- NOTE | 2022-05-30 13:58 | XRAY Report ---
PROCEDURE: Chest 1 View X-Ray INDICATIONS: Chest Pain TECHNIQUE: One view of the chest was acquired. COMPARISON: None. FINDINGS: Surgical changes and devices: None. Lungs and pleura: No pleural effusions or pneumothorax. Lungs are clear. Mediastinum: Mediastinal contours appear normal. Heart size is normal. Bones and chest wall: No suspicious bony lesions. Overlying soft tissues appear unremarkable. IMPRESSION: No acute cardiopulmonary process demonstrated radiographically. Reviewed by: Oscar Good MD on 05/30/2022 1:56 PM [facility] Approved by: Oscar Good MD on 05/30/2022 1:56 PM [facility] Station ID: [id number]
[2022-05-30 15:33] VITALS: BP 130/75
== END 2022-05-30 15:40 | disposition home or self-care (01) ==
LOC: ED 13:18
DX: R07.9 Chest pain, unspecified (principal)
CPT/HCPCS: 36415; 71045; 80053; 83690; 84484; 85025; 93005; 99284; A9270

== ENCOUNTER 2022-06-02 15:18 | Outpatient (CLI) | payer BC ==
--- NOTE | 2022-06-03 03:16 | XRAY Report ---
PROCEDURE: Cervical Spine Comp w/Flex/Ext INDICATIONS: NUMBNESS AND TINGLING IN RIGHT ARM TECHNIQUE: 7 views of the cervical spine were acquired. COMPARISON: None. FINDINGS: Bones: No fractures or dislocations to the C6-C7 level. No suspicious bony lesions. There is straig htening of the cervical lordosis. Minimal retrolisthesis demonstrated at C3-C4. This appears minimall y increased on flexion images. There is normal alignment on extension. Soft tissues: Prevertebral soft tissues are normal in thickness. IMPRESSION: 1. No fracture or subluxation. 2. Minimal anterolisthesis at C3-C4 appears slightly increased on flexion. Reviewed by: John Kuo MD on 06/03/2022 3:15 AM PST Approved by: John Kuo MD on 06/03/2022 3:15 AM PST Station ID: [id number]
== END 2022-06-02 15:19 | disposition home or self-care (01) ==
LOC: DI 15:18
PROVIDERS: ATTEND Physician Assistant
DX: M43.12 Spondylolisthesis, cervical region (principal)

== ENCOUNTER 2022-06-03 07:59 | Outpatient (CLI) | payer BC ==
[2022-06-03 08:37] LABS: ALBUMIN/GLOBULIN RATIO 1.1 (1.0-2.2); BILIRUBIN,TOTAL 0.5 mg/dL (0.2-1.0); CALCIUM 9.4 mg/dL (8.5-10.3); CREATININE 0.9 mg/dL (0.4-1.0); MAGNESIUM 1.9 mg/dL (1.7-2.8); POTASSIUM 4.1 mmol/L (3.5-5.0); TOTAL PROTEIN 7.5 g/dL (6.7-8.2)
[2022-06-06 14:08] LABS: ANTINUCLEAR ANTIBODIES IFA Negative (.)
== END 2022-06-03 08:00 | disposition home or self-care (01) ==
LOC: LAB 07:59
PROVIDERS: ATTEND Family Medicine
DX: I12.9 Hypertensive chronic kidney disease with stage 1 through stage 4 chronic kidney disease, or unspecified chronic kidney disease (principal); N18.2 Chronic kidney disease, stage 2 (mild); E87.6 Hypokalemia; R20.2 Paresthesia of skin; R74.8 Abnormal levels of other serum enzymes
CPT/HCPCS: 36415; 80053; 82607; 82746; 83690; 83735; 86038

== ENCOUNTER 2022-06-09 19:32 | Outpatient (CLI) | payer BC | END 2022-06-09 19:33 | disposition home or self-care (01) | LOC: SC 19:32 | PROVIDERS: ATTEND Nurse Practitioner Family | DX: G47.61 Periodic limb movement disorder (principal) | CPT/HCPCS: 95810 ==

== ENCOUNTER 2022-06-14 06:58 | Outpatient (CLI) | payer BC ==
[2022-06-14] MEDS ORDERED: GADOBUTROL 10 MMOL/10 ML VIAL ONE (07:08)
--- NOTE | 2022-06-14 10:51 | MRI Report ---
PROCEDURE: BRAIN W/WO INDICATIONS: HEADACHE, VISION CHANGES CONTRAST: 8.9ml gadavist TECHNIQUE: Noncontrast axial T1 spin echo, axial T2 fast spin echo, sagittal and axial FLAIR, coronal T2 fast sp in echo, axial gradient echo, axial diffusion and ADC through the brain. After the administration of contrast, axial and coronal T1 spin echo with fat saturation through the brain. COMPARISON: None. FINDINGS: Image quality: Excellent. CSF spaces: Basal cisterns are patent. No extra-axial fluid collections. Ventricles are normal in size and shape. Brain: No midline shift. No intracranial bleeds or masses. No abnormal intracranial enhancement. There is cerebral volume loss for age. There is periventricular white matter chronic small vessel is chemic change. The brainstem appears normal. Diffusion-weighted images demonstrate no acute ischemi c insults. No chronic ischemic insults. Normal intravascular flow voids are present. Skull and face: Calvarial marrow is normal in signal. Orbits appear normal. Sinuses: Moderate mucosal thickening is seen involving the left maxillary sinus. Sinuses and mastoid s otherwise appear clear. IMPRESSION: No imaging explanation is found for the patient's presenting symptoms. No masses or abnormal enhancement can be seen. No findings of acute or subacute infarction are seen. Negative for hydrocephalus or brain edema. Reviewed by: Janak López MD on 06/14/2022 9:49 AM [facility] Approved by: Janak López MD on 06/14/2022 9:49 AM [facility] Station ID: [id number]
[2022-06-14] MEDS: GADOBUTROL 10 MMOL/10 ML VIAL IVP ONE (16:52)
== END 2022-06-14 06:59 | disposition home or self-care (01) ==
LOC: DI 06:58
PROVIDERS: ATTEND Physician Assistant
DX: G44.89 Other headache syndrome (principal); H53.9 Unspecified visual disturbance
CPT/HCPCS: 70553; A9585

== ENCOUNTER 2022-06-28 07:42 | Outpatient (CLI) | payer BC | END 2022-06-28 07:43 | disposition home or self-care (01) | LOC: DI 07:42 | PROVIDERS: ATTEND Physician Assistant | DX: R07.89 Other chest pain (principal) | CPT/HCPCS: 93306 ==

== ENCOUNTER 2022-07-09 07:00 | Outpatient (CLI) | payer BC ==
[2022-07-14 07:09] LABS: METANEPHRINE URINE 53 ug/L (Undefined); METANEPHRINE URINE 24HR 85 ug/24 hr (36-209); NORMETANEPHRINE URINE 256 ug/L (Undefined); NORMETANEPHRINE URINE 24HR 410 ug/24 hr (131-612)
[2022-07-14 14:08] LABS: CORTISOL URINE FREE 6 ug/L (Undefined); CORTISOL URINE FREE 24HR 10 ug/24 hr (6-42)
== END 2022-07-09 23:59 | disposition home or self-care (01) ==
LOC: LAB.WCP 07:00
PROVIDERS: ATTEND Internal Medicine
DX: I12.9 Hypertensive chronic kidney disease with stage 1 through stage 4 chronic kidney disease, or unspecified chronic kidney disease (principal); N18.9 Chronic kidney disease, unspecified
CPT/HCPCS: 81599; 82384; 82530; 82570; 83835

== ENCOUNTER 2022-07-14 12:02 | Outpatient (CLI) | payer BC ==
--- NOTE | 2022-07-14 10:44 | SLEEP CARE CONSULTATION ---
Information from patient questionnaire entered by Kamran Davey MA. I have reviewed and concur with the information entered by Kamran Davey MA. This document represents the service I personally performed and the decisions made by Real chavarria Caren J, ARNP. History of Present Illness Service Date and Time: 07/14/2022 1040 Initial [place] Sleepiness Scale score: 18 (in 2020) Current [place] Sleepiness Scale score: 12 Additional HPI information: SALVADOR SHABAZZ returns via video telehealth visit for follow up and results of the recently performed polysomnography. The patient was informed of the following findings: No significant sleep disordered breathing with an average AHI of 4.8 and matthew oxygen saturation of 89%. Nonsupine AHI elevated at 6.11. I explained the pathophysiology behind obstructive sleep apnea. Patient does not have sleep apnea and was advised how weight gain could increase the risk of developing sleep apnea in the future. I strongly encouraged the patient to lose weight. Patient does not have significant sleep disordered breathing but has elevated AHI in non-supine position so advised positional therapy. Methods to achieve positional management therapy were discussed; such as, positioning with pillows, wearing a T-shirt with tennis balls sewn into the back, or commercially available products. Patient has loud snoring. Snoring can be reduced by weight loss. Weight loss is best achieved with diet consult. Patient instructed to contact PCP for referral. Snoring can also be treated with an oral appliance from a dentist. Advised to check insurance coverage. In addition, an ENT evaluation can be do to see if other treatment is indicated. Patient counseled not drink alcohol less than 4 hours before bedtime as it can increase snoring and apnea. Patient was cautioned about risks of drowsy driving until sleepiness symptoms resolve. Patient denies drowsy driving. Sleep Study - Results Type of Sleep Study: Home sleep study Prior sleep studies: No Polysomnography/Home Sleep Study results: IMPRESSION: The quality of the study is good. The patient had normal sleep efficiency. The sleep architecture was abnormal for sleep fragmentation and reduced amount of time spent in REM sleep. Respiratory monitoring showed no significant sleep disordered breathing (AHI = 4.8) or hypoxia (matthew oxygen saturation of 89%). The respiratory events occurred mainly during non-supine sleep (supine AHI = 2.6; non-supine = 6.11). Snore was moderate to loud in intensity. There was mild periodic leg movement of sleep not contributing to the sleep fragmentation. Cardiac rhythm was normal sinus rhythm without significant arrhythmia. No abnormal behavior (parasomnia) observed during the night. Allergies and Home Medications Drug allergies reviewed: Yes (adhesive tape) Home medication list reviewed: Yes (Losartan 100 mg; HCTZ 12.5 mg) Review of Systems Review of systems same as previous: Yes (no changes) Physical Exam Vital signs obtained and entered by: KAMRAN BEASLEY VIA PHONE Height: 5 ft 2 in Weight: 196 lb Body Mass Index: 35.8 BMI Classification: Obese Impression and Plan 1. Snoring but no significant sleep disordered breathing. Patient advised that often weight loss will reduce snoring as well as apnea risk. An oral appliance can also be used for snoring. This would require a dental consultation. Patient cautioned not to use other online appliances as can cause bite issues. A list of accredited dentists in [facility] and one local dentist who makes oral appliances is available in office. Patient is advised to check if insurance will cover. An ENT consult can also be helpful to determine if any other treatment is an option. 2. Periodic limb movement, mild, that did not fragment patients sleep. Periodic limb movement of sleep (PLMS) is characterized by episodes of repetitive limb movements that occur during sleep and usually involve the lower limbs. The etiology is unknown. Caffeine can aggravate PLMS and should be avoided. Sleep hygiene methods can also improve sleep as well as lifestyle changes such as regular exercise. Patient was advised that no treatment is needed at this time. If symptoms increase, then further evaluation is indicated. * Attempt to lose weight * Avoid alcohol consumption near bedtime * The patient is cautioned about driving until sleepiness is completely resolved. * Return as needed for follow up. Counseling Topics: Sleeping position, Weight loss health impact Visit Type: Telehealth Video Video Type: [id number] Patient Location: work Location of Provider: Office Patient agrees and consents to this telehealth visit type: Yes Patient agrees to have their insurance billed: Yes Time Spent with Patient (minutes): 14 Provider Statement: I spent 100% of the Telehealth Video Call with the patient with greater than 50% spent counseling the patient and coordination of care.
== END 2022-07-14 12:03 | disposition home or self-care (01) ==
LOC: SC 12:02
PROVIDERS: ATTEND Nurse Practitioner Family
DX: R06.83 Snoring (principal); G47.61 Periodic limb movement disorder; E66.9 Obesity, unspecified; Z68.35 Body mass index [BMI] 35.0-35.9, adult

== ENCOUNTER 2022-10-03 15:07 | Outpatient (CLI) | payer BC | END 2022-10-03 15:08 | disposition home or self-care (01) | LOC: MAC.MOP 15:07 | PROVIDERS: ATTEND Internal Medicine | DX: R00.2 Palpitations (principal); R07.89 Other chest pain; R00.0 Tachycardia, unspecified | CPT/HCPCS: 93246 ==

== ENCOUNTER 2022-10-25 10:30 | Outpatient (CLI) | payer BC | END 2022-10-25 10:31 | disposition home or self-care (01) | LOC: MAC.INF 10:30 | PROVIDERS: ATTEND Internal Medicine | DX: R00.2 Palpitations (principal); R07.89 Other chest pain; I47.1 Supraventricular tachycardia; I49.1 Atrial premature depolarization; I49.3 Ventricular premature depolarization | CPT/HCPCS: 93244 ==

== ENCOUNTER 2023-01-09 06:30 | Outpatient (CLI) | payer BC ==
[2023-01-09 06:43] LABS: BASOPHILS % (AUTO) 0.7 %; EOSINOPHILS # (AUTO) 0.5 10^3/uL (0.0-0.7); EOSINOPHILS % (AUTO) 7.9 %; HCT - HEMATOCRIT 43.5 % (37.0-47.0); HGB - HEMOGLOBIN 13.8 g/dL (12.0-16.0); LYMPHOCYTES # (AUTO) 2.5 10^3/uL (1.5-3.5); LYMPHOCYTES % (AUTO) 44.4 %; MEAN CORPUSCULAR HEMOGLOBIN 27.8 pg (27.0-31.0); MEAN CORPUSCULAR HGB CONC 31.7 g/dL (32.0-36.0); MEAN CORPUSCULAR VOLUME 87.5 fL (81.0-99.0); MEAN PLATELET VOLUME 8.6 fL (7.9-10.8); MONOCYTES # (AUTO) 0.4 10^3/uL (0.0-1.0); MONOCYTES % (AUTO) 6.5 %; NEUTROPHILS # (AUTO) 2.3 10^3/uL (1.5-6.6); NEUTROPHILS % (AUTO) 40.3 %; PLT - PLATELET COUNT 378 10^3/uL (130-450); RED BLOOD COUNT 4.97 10^6/uL (4.20-5.40); RED CELL DISTRIBUTION WIDTH 13.6 % (12.0-15.0); WHITE BLOOD COUNT 5.7 x10^3/uL (4.8-10.8)
[2023-01-09 07:02] LABS: ALBUMIN 4.2 g/dL (3.2-5.5); ALBUMIN/GLOBULIN RATIO 1.3 (1.0-2.2); ALKALINE PHOSPHATASE 67 IU/L (42-121); ALT ALANINE AMINOTRANSFERASE 65 IU/L (10-60); AST ASPARTATE AMINOTRANSFERASE 51 IU/L (10-42); BILIRUBIN,TOTAL 0.6 mg/dL (0.2-1.0); BUN - BLOOD UREA NITROGEN 20 mg/dL (6-20); CALCIUM 9.3 mg/dL (8.5-10.3); CARBON DIOXIDE - CO2 25 mmol/L (21-32); CHLORIDE 105 mmol/L (101-111); CHOL/HDL RATIO 2.7 (<4.4); CHOLESTEROL 186 mg/dL; GFR - MDRD 58 (>89); GLUCOSE 116 mg/dL (70-100); HDL CHOLESTEROL 70 mg/dL; LDL CHOLESTEROL,CALCULATED 98 mg/dL; LDL/HDL RATIO 1.4 (<4.4); POTASSIUM 4.3 mmol/L (3.5-5.0); SODIUM 139 mmol/L (135-145); TOTAL PROTEIN 7.5 g/dL (6.7-8.2); TRIGLYCERIDES 92 mg/dL; VLDL CHOLESTEROL 18 mg/dL
== END 2023-01-09 06:31 | disposition home or self-care (01) ==
LOC: LAB 06:30
PROVIDERS: ATTEND Internal Medicine
DX: I12.9 Hypertensive chronic kidney disease with stage 1 through stage 4 chronic kidney disease, or unspecified chronic kidney disease (principal); E78.5 Hyperlipidemia, unspecified
CPT/HCPCS: 36415; 80053; 80061; 83721; 85025

== ENCOUNTER 2023-01-30 10:36 | Outpatient (CLI) | payer BC ==
--- NOTE | 2023-01-30 15:23 | DEXA Report ---
PROCEDURE: Dexa Spine and/or Hip INDICATIONS: POST MENOPAUSAL TECHNIQUE: Dual energy x-ray absorptiometry (DXA) was performed on a HELIX BIOMEDIX System. Regions measur ed are the AP Spine, femoral neck, and if needed forearm. COMPARISON: None FINDINGS: Lumbar Spine: Bone Mineral Density 1.080 g/cm/cm,T score -0.8. Normal. Left Femoral Neck: Bone Mineral Density 0.767 g/cm/cm, T score -2.0. Osteopenia. Left Hip: Bone Mineral Density 0.904 g/cm/cm,T score -0.8. Normal. (T score greater or equal to -1.0: NORMAL) (T score from -1.1 to -2.4: OSTEOPENIA) (T score less than or equal to -2.5 to: OSTEOPOROSIS) Impression: By WHO criteria, this patient has low bone density (osteopenia). Patients with diagnosis of osteoporosis or osteopenia should have regular bone mineral density assess ment. For those eligible for Medicare, routine testing is allowed once every 2 years. Testing frequ ency can be increased for patients who have rapidly progressing disease or for those who are receivin g medical therapy to restore bone mass. Reviewed by: Tyler Oh MD on 01/30/2023 3:21 PM PDT Approved by: Tyler Oh MD on 01/30/2023 3:21 PM PDT Station ID: [id number]
== END 2023-01-30 10:37 | disposition home or self-care (01) ==
LOC: DI 10:36
PROVIDERS: ATTEND Internal Medicine
DX: M85.88 Other specified disorders of bone density and structure, other site (principal); Z78.0 Asymptomatic menopausal state

== ENCOUNTER 2023-03-17 07:54 | Outpatient (CLI) | payer BC ==
[2023-03-17 08:19] LABS: ALBUMIN 4.3 g/dL (3.2-5.5); ALBUMIN/GLOBULIN RATIO 1.6 (1.0-2.2); BILIRUBIN,TOTAL 0.6 mg/dL (0.2-1.0); CALCIUM 9.8 mg/dL (8.5-10.3); CREATININE 1.1 mg/dL (0.6-1.3); POTASSIUM 4.4 mmol/L (3.5-4.5)
== END 2023-03-17 07:55 | disposition home or self-care (01) ==
LOC: LAB 07:54
PROVIDERS: ATTEND Podiatrist
DX: Z01.812 Encounter for preprocedural laboratory examination (principal)
CPT/HCPCS: 36415; 80053

== ENCOUNTER 2023-03-19 07:23 | Outpatient (CLI) | payer BC | END 2023-03-19 07:24 | disposition home or self-care (01) | LOC: RT 07:23 | PROVIDERS: ATTEND Podiatrist | DX: Z01.818 Encounter for other preprocedural examination (principal) | CPT/HCPCS: 93005 ==

== ENCOUNTER 2023-05-09 06:27 | Outpatient (CLI) | payer BC ==
[2023-05-09 07:19] LABS: CALCIUM 9.7 mg/dL (8.5-10.3); POTASSIUM 4.4 mmol/L (3.5-4.5)
== END 2023-05-09 06:28 | disposition home or self-care (01) ==
LOC: LAB 06:27
PROVIDERS: ATTEND Internal Medicine
DX: I12.9 Hypertensive chronic kidney disease with stage 1 through stage 4 chronic kidney disease, or unspecified chronic kidney disease (principal); N18.9 Chronic kidney disease, unspecified
CPT/HCPCS: 36415; 80048

== ENCOUNTER 2023-05-15 06:20 | Outpatient (CLI) | payer BC ==
[2023-05-15 06:35] LABS: BASOPHILS % (AUTO) 0.8 %; EOSINOPHILS # (AUTO) 0.4 10^3/uL (0.0-0.7); HCT - HEMATOCRIT 41.3 % (37.0-47.0); HGB - HEMOGLOBIN 12.8 g/dL (12.0-16.0); LYMPHOCYTES # (AUTO) 2.1 10^3/uL (1.5-3.5); LYMPHOCYTES % (AUTO) 40.8 %; MEAN CORPUSCULAR HEMOGLOBIN 27.1 pg (27.0-31.0); MEAN CORPUSCULAR VOLUME 87.3 fL (81.0-99.0); MEAN PLATELET VOLUME 8.6 fL (7.9-10.8); MONOCYTES # (AUTO) 0.4 10^3/uL (0.0-1.0); MONOCYTES % (AUTO) 7.4 %; NEUTROPHILS # (AUTO) 2.3 10^3/uL (1.5-6.6); NEUTROPHILS % (AUTO) 43.8 %; PLT - PLATELET COUNT 325 10^3/uL (130-450); RED BLOOD COUNT 4.73 10^6/uL (4.20-5.40); WHITE BLOOD COUNT 5.2 x10^3/uL (4.8-10.8)
[2023-05-15 06:48] LABS: ALBUMIN 4.3 g/dL (3.2-5.5); ALBUMIN/GLOBULIN RATIO 1.7 (1.0-2.2); BILIRUBIN,TOTAL 0.5 mg/dL (0.2-1.0); CALCIUM 9.7 mg/dL (8.5-10.3); CREATININE 1.1 mg/dL (0.6-1.3); POTASSIUM 4.3 mmol/L (3.5-4.5); TOTAL PROTEIN 6.8 g/dL (6.4-8.9)
== END 2023-05-15 06:21 | disposition home or self-care (01) ==
LOC: LAB 06:20
PROVIDERS: ATTEND Internal Medicine
DX: R19.7 Diarrhea, unspecified (principal)
CPT/HCPCS: 36415; 80053; 83690; 85025

== ENCOUNTER 2023-05-16 08:00 | Outpatient (CLI) | payer BC | END 2023-05-16 23:59 | disposition home or self-care (01) | LOC: LAB.R 08:00 | PROVIDERS: ATTEND Internal Medicine | DX: R19.7 Diarrhea, unspecified (principal) | CPT/HCPCS: 83993; 87045; 87046; 87329; 87427; 87493 ==

== ENCOUNTER 2023-06-08 09:26 | Outpatient (CLI) | payer BC ==
--- NOTE | 2023-06-11 11:54 | Mammography Report ---
BILATERAL DIGITAL SCREENING MAMMOGRAM 3D/2D: 06/08/2023 CLINICAL: Routine screening. Comparison is made to exams dated: 05/29/2022 mammogram and 05/03/2021 mammogram - [facility]. Both breasts are heterogeneously dense, which may obscure small masses (category c / 51-75% glandular tissue). No significant masses, calcifications, or other findings are seen in either breast. There has been no significant interval change. IMPRESSION: NEGATIVE There is no mammographic evidence of malignancy. A 1 year screening mammogram is recommended. Based on the Tyrer Cuzick model (a risk assessment model) the patients lifetime risk is 6.0% and her 10 year risk is 1.8%. According to the ACR, ACS, and NCCN guidelines, an annual breast MRI exam davonte g with mammogram is recommended if the patients lifetime risk is 20% or greater. This exam was interpreted at Station ID: [id number]. NOTE: For mammograms, a report in lay terms will be sent to the patient. Approximately 15% of breast malignancies will not be visualized mammographically. In the management of a palpable breast mass, a negative mammogram must not discourage biopsy of a clinically suspicious lesion. Electronically Signed By: Tyler apodaca/hermila:06/08/2023 16:43:30 letter sent: No_Letter ACR BI-RADS Category 1: Negative 3341F PARENCHYMAL PATTERN: (D) - The breast(s) demonstrate(s) heterogeneously dense fibroglandular [place]. BI-RADS CATEGORY: (1) - 1 Mammogram [id number] 1 year screening LATERALITY: (B)
== END 2023-06-08 09:27 | disposition home or self-care (01) ==
LOC: DI 09:26
DX: Z12.31 Encounter for screening mammogram for malignant neoplasm of breast (principal); R92.333 Mammographic heterogeneous density, bilateral breasts

== ENCOUNTER 2023-08-20 08:00 | Outpatient (CLI) | payer BC | END 2023-08-20 23:59 | disposition home or self-care (01) | LOC: LAB.R 08:00 | PROVIDERS: ATTEND Internal Medicine | DX: R19.7 Diarrhea, unspecified (principal) | CPT/HCPCS: 83993 ==

== ENCOUNTER 2023-08-28 10:54 | Outpatient (CLI) | payer BC ==
[2023-08-28 11:10] LABS: BASOPHILS % (AUTO) 0.5 %; EOSINOPHILS # (AUTO) 0.5 10^3/uL (0.0-0.7); EOSINOPHILS % (AUTO) 7.5 %; HCT - HEMATOCRIT 43.3 % (37.0-47.0); HGB - HEMOGLOBIN 13.5 g/dL (12.0-16.0); LYMPHOCYTES # (AUTO) 2.2 10^3/uL (1.5-3.5); LYMPHOCYTES % (AUTO) 37.3 %; MEAN CORPUSCULAR HEMOGLOBIN 26.7 pg (27.0-31.0); MEAN CORPUSCULAR HGB CONC 31.2 g/dL (32.0-36.0); MEAN CORPUSCULAR VOLUME 85.6 fL (81.0-99.0); MONOCYTES # (AUTO) 0.4 10^3/uL (0.0-1.0); MONOCYTES % (AUTO) 6.2 %; NEUTROPHILS # (AUTO) 2.9 10^3/uL (1.5-6.6); NEUTROPHILS % (AUTO) 48.3 %; PLT - PLATELET COUNT 306 10^3/uL (130-450); RED BLOOD COUNT 5.06 10^6/uL (4.20-5.40); RED CELL DISTRIBUTION WIDTH 14.5 % (12.0-15.0)
[2023-08-28 11:41] LABS: ALBUMIN 4.3 g/dL (3.2-5.5); ALBUMIN/GLOBULIN RATIO 1.7 (1.0-2.2); BILIRUBIN,TOTAL 0.6 mg/dL (0.2-1.0); CREATININE 1.1 mg/dL (0.6-1.3); TOTAL PROTEIN 6.9 g/dL (6.4-8.9)
== END 2023-08-28 10:55 | disposition home or self-care (01) ==
LOC: LAB 10:54
PROVIDERS: ATTEND Internal Medicine
DX: R10.13 Epigastric pain (principal); R19.7 Diarrhea, unspecified
CPT/HCPCS: 36415; 80053; 83690; 85025; 86364

== ENCOUNTER 2023-10-26 16:32 | Outpatient (CLI) | payer BC ==
[2023-10-26 17:25] LABS: THYROID STIMULATING HORMONE 0.97 uIU/mL (0.34-5.60)
== END 2023-10-26 16:33 | disposition home or self-care (01) ==
LOC: LAB 16:32
PROVIDERS: ATTEND Internal Medicine
DX: R68.89 Other general symptoms and signs (principal)
CPT/HCPCS: 36415; 82670; 83001; 83002; 84443

== ENCOUNTER 2023-12-10 12:28 | Outpatient (CLI) | payer BC ==
--- NOTE | 2023-12-11 10:20 | Ultrasound Report ---
LIMITED ULTRASOUND OF LEFT BREAST: 12/10/2023 CLINICAL: Palpable left breast lump. Comparison is made to exams dated: 06/08/2023 mammogram, 05/29/2022 mammogram, 05/03/2021 mammogram, and 12/10/2023 mammogram - [facility]. Color flow and real-time ultrasound of the left breast 7 o'clock region were performed. Borges scale i mages of the real-time examination were reviewed. No significant abnormalities were seen sonographically in the left breast. There is denser fibroglan dular tissue. IMPRESSION: NEGATIVE No sonographic evidence of malignancy in the region of the palpable abnormality. A 1 year screening mammogram is recommended. Exam findings were conveyed to the patient. Patient is advised to monitor for significant change. This exam was interpreted at Station ID: [id number]. Electronically Signed By: Hero Bolanos M.D. slc/:12/10/2023 13:31:18 Ultrasound BI-RADS: 1 Negative BI-RADS CATEGORY: (1) - 1 RECOMMENDATION: (ANNUAL) - Recommend routine annual screening mammography. [id number] 1 year screening LATERALITY: (B)
--- NOTE | 2023-12-11 10:20 | Mammography Report ---
UNILATERAL LEFT DIGITAL DIAGNOSTIC MAMMOGRAM 3D/2D: 12/10/2023 CLINICAL: Palpable left breast lump. Comparison is made to exams dated: 06/08/2023 mammogram, 05/29/2022 mammogram, and 05/03/2021 mammogr am - [facility]. There are scattered areas of fibroglandular density in the left breast (category b / 25%-50% glandula r tissue). No significant masses, calcifications, or other findings are seen in the breast. IMPRESSION: INCOMPLETE: NEEDS ADDITIONAL IMAGING EVALUATION No mammographic evidence of malignancy. A targeted ultrasound is recommended and will immediately follow. Based on the Tyrer Cuzick model (a risk assessment model) the patient's lifetime risk is 4.0% and her 10 year risk is 1.2%. According to the ACR, ACS, and NCCN guidelines, an annual breast MRI exam davonte g with mammogram is recommended if the patient's lifetime risk is 20% or greater. This exam was interpreted at Station ID: [id number]. NOTE: For mammograms, a report in lay terms will be sent to the patient. Approximately 15% of breast malignancies will not be visualized mammographically. In the management of a palpable breast mass, a negative mammogram must not discourage biopsy of a clinically suspicious lesion. Electronically Signed By: Hero Bolanos M.D. slc/:12/10/2023 13:27:57 ACR BI-RADS Category 0: Incomplete 3340F PARENCHYMAL PATTERN: (A) - The breast(s) demonstrate(s) scattered fibroglandular densities. BI-RADS CATEGORY: (0) - 0 Ultrasound [id number] Immediate follow-up LATERALITY: (B)
== END 2023-12-10 12:29 | disposition home or self-care (01) ==
LOC: DI 12:28
PROVIDERS: ATTEND Nurse Practitioner Family
DX: N63.24 Unspecified lump in the left breast, lower inner quadrant (principal); R92.322 Mammographic fibroglandular density, left breast

== ENCOUNTER 2024-01-14 15:05 | Outpatient (CLI) | payer BC | END 2024-01-14 15:06 | disposition home or self-care (01) | LOC: LAB 15:05 | PROVIDERS: ATTEND Physician Assistant | DX: R19.7 Diarrhea, unspecified (principal); R14.0 Abdominal distension (gaseous); R10.30 Lower abdominal pain, unspecified | CPT/HCPCS: 36415; 82784; 86231; 86364 ==

== ENCOUNTER 2024-01-16 08:00 | Outpatient (CLI) | payer BC ==
[2024-01-17 08:11] LABS: ADENOVIRUS F 40/41 Not Detected (Not Detected); ASTROVIRUS Not Detected (Not Detected); C DIFFICILE TOXIN A/B Not Detected (Not Detected); CAMPYLOBACTER Not Detected (Not Detected); CRYPTOSPORIDIUM Not Detected (Not Detected); CYCLOSPORA CAYETANENSIS Not Detected (Not Detected); ENTAMOEBA HISTOLYTICA Not Detected (Not Detected); ENTEROAGGREGATIVE E COLI Not Detected (Not Detected); ENTEROPATHOGENIC E COLI Not Detected (Not Detected); ENTEROTOXIGENIC E COLI Not Detected (Not Detected); GIARDIA LAMBLIA Not Detected (Not Detected); NOROVIRUS GI/GII Not Detected (Not Detected); PLESIOMONAS SHIGELLOIDES Not Detected (Not Detected); ROTAVIRUS A Not Detected (Not Detected); SALMONELLA Not Detected (Not Detected); SAPOVIRUS Not Detected (Not Detected); SHIGA-TOXIN-PRODUCING E COLI Not Detected (Not Detected); SHIGELLA/ENTEROINVASIVE E COLI Not Detected (Not Detected); VIBRIO Not Detected (Not Detected); VIBRIO CHOLERAE Not Detected (Not Detected); YERSINIA ENTEROCOLITICA Not Detected (Not Detected)
== END 2024-01-16 23:59 | disposition home or self-care (01) ==
LOC: LAB.R 08:00
PROVIDERS: ATTEND Physician Assistant
DX: R19.7 Diarrhea, unspecified (principal); R14.0 Abdominal distension (gaseous); R10.30 Lower abdominal pain, unspecified
CPT/HCPCS: 87507